=== PATIENT | female | born 1995 | race Two or more races ===

== ENCOUNTER 2024-09-18 02:58 | Emergency (ER) | payer MEDICAID, SELFPAY ==
--- NOTE | 2024-09-18 03:07 | EDNOTE_ITS ---
ED Syncope RME/HPI General Chief Complaint: Syncope / Near Syncope Stated Complaint: NEAR SYNCOPE Time Seen by Provider: 09/18/24 03:20 Arrival date/time: 09/18/24 02:58 RME / HPI RME / HPI narrative: This section includes all my notes and documentations, including HPI, PE, and ED course. Jonnie aLy MD HPI: 29yo female with no significant past medical history BIBA from home presents to the ED for a chief complaint of near syncope. Patient states she used 0.5 gram of cocaine tonight and drank alcohol tonight, reporting she felt dizzy. Patient endorses she's used cocaine in the past, but states this feels completely different . Per EMS, patient's blood pressure was 142/76 and was tachycardic en route. No syncope. She did not fall. Currently, she reports palpitations. No dizziness. Patient denies any vomiting, diarrhea or any other associated symptoms. No other complaints reported. ROS: All negative except as documented in HPI. Physical Exam: General: Alert and oriented. No acute distress when remaining still. Eyes: Conjunctivae and lids clear. PERRL. EOMI. ENT: No nasal congestion. Neck: Supple. Heart: RRR. Lungs: No respiratory distress. Good air movement. No rhonchi, wheezing, rales. Abdomen: Soft and nontender. Normal bowel sounds. No distension. No rebound or guarding. Back: No CVA tenderness. Skin: Warm and dry. Neuro: Alert and oriented X 3. Cranial nerves II to XII grossly normal. No peripheral motor deficits. I reviewed EMS notes. I reviewed all diagnostic test results. My interpretation of the EKG is sinus rhythm with nonspecific ST-T changes. Blood tests are unremarkable. UDS positive for cocaine and marijuana. At this point, diagnoses include cocaine intoxication. Treatment here included IV fluid. Significant improvement noted. Recommended more outpatient workup. Based on my best medical judgment, made decision no further evaluation or treatment indicated at this time. Patient understands and agrees to the discharge instructions customized and printed, see below. Discharge Instructions from Dr. Lay printed for you: 1. Fortunately, there is no life-threatening condition. Such as heart attack. 2. But cocaine can cause heart attacks. Avoid all drugs. 3. See a private doctor on 09/19/2024 for recheck. Ask to review all test results and official radiology reports, to make sure you receive all necessary follow-ups and monitoring. To make sure there is no serious underlying heart condition, ask to help you get more tests for your heart that cannot be done here in the ER. Such as Holter Monitor (cardiac monitoring at home from a day to even a month), heart stress test (on treadmill or with medication), echocardiogram (imaging of your heart structures), heart catherization (checking for blockages in your heart arteries), and a referral to see a Plate And Frame Filter Operator. 4. Seek immediate medical care with worsening or with any concerns. Jonnie Lay MD Related Data Allergies Allergy/AdvReac Type Severity Reaction Status Date / Time No Known Allergies Allergy Verified 09/18/24 04:15 Review of Systems Review of Systems Systems Reviewed: All systems reviewed, normal except as documented ED Exam Narrative Physical exam: As noted in HPI. Course Quality Measures none Orders Category Date Time Status EKG (ED ONLY) *Do not use* NOW Care 09/18/24 03:24 Completed Saline [Insert IV] NOW Care 09/18/24 03:21 Active Straight [In and Out Catheter] X1 Care 09/18/24 03:21 Active EKG (ED Only) Stat Exams 09/18/24 03:24 Draft Alcohol, Blood Medical Stat Lab 09/18/24 03:45 Completed Bilirubin,Direct Stat Lab 09/18/24 03:45 Completed CBC Stat Lab 09/18/24 03:45 Completed CMP [Comprehensive Metabolic Panel] Stat Lab 09/18/24 03:45 Completed Drug Screen,Urine Stat Lab 09/18/24 04:34 Completed Magnesium Stat Lab 09/18/24 03:45 Completed Troponin I Stat Lab 09/18/24 03:45 Completed Ondansetron Inj [Zofran Inj] Med 09/18/24 03:24 Discontinued 4 mg IVP X1 ONE Sodium Chloride 0.9% 1000 ml [Ns] 1,000 ml Med 09/18/24 03:24 Discontinued IV 999 mls/hr Vital Signs Vital signs: Vital Signs Temperature 98.4 F 09/18/24 03:43 Pulse Rate 98 09/18/24 03:43 Respiratory Rate 18 09/18/24 03:43 Blood Pressure 121/85 H 09/18/24 03:43 Pulse Oximetry (%) 100 09/18/24 03:43 Oxygen Delivery Method Room Air 09/18/24 03:43 Syncope MDM Narrative MDM Narrative:: Scribe Attestation: 09/18/24 - I, Neelima Wing am scribing for and in the presence of Dr. Lay. 29yo female with no significant past medical history BIBA from home presents to the ED for a chief complaint of near syncope. Patient states she used 0.5g of cocaine tonight and drank alcohol tonight, reporting she's felt dizzy. Patient endorses she's used cocaine in the past, but states this feels completely different . Per EMS, patient's blood pressure was 142/76 and was tachycardic en route. Patient denies any vomiting, diarrhea or any other associated symptoms. No other complaints reported. Patient data External records reviewed:: [facility] previous records (Per chart review, patient has no previous ED visits or admissions to this facility.) Clinical information provided by:: patient and EMS Social determinants that could affect healthcare access:: substance use (cocaine and alcohol use) Patient has the following chronic illnesses:: none How is presenting disease/condition affected by chronic disease/condition?: no chronic disease Evaluation data The following diagnostics were reviewed and interpreted by me:: lab results and EKG tracing(s) (My interpretation of the EKG is: Sinus rhythm (96 bpm) with nonspecific ST-T changes. Jonnie Lay MD) Lab and/or radiology exams considered but not ordered:: none Interpretation Summary: I reviewed all diagnostic test results. My interpretation of the EKG is sinus rhythm with nonspecific ST-T changes. Blood tests are unremarkable. UDS positive for cocaine and marijuana. Medications / Prescriptions Medications or Prescriptions considered but not ordered:: None Medication administrations:: Medication Administration History Discontinued Medications Sodium Chloride (Ns) 1,000 mls @ 999 mls/hr IV .Q1H1M ONE Stop: 09/18/24 04:24 Last Admin: 09/18/24 04:19 Dose: 999 mls/hr Documented By: RENAE Ondansetron HCl (Ondansetron Inj 2 Mg/Ml Inj 2 Ml) 4 mg IVP X1 ONE; Protocol Stop: 09/18/24 03:25 IV fluid and Zofran Consultations Consultation(s) initiated? (list below): No Diagnosis Syncope Differential Diagnosis: syncope due to orthostatic hypotension, vasovagal syncope, complete atrioventricular block, subarachnoid hemorrhage, pulmonary embolism, dehydration and other (ALK intoxication, drug intoxication) Most likely diagnosis given after review of the tests above:: Cocaine intoxication Admission Indicated Admission indicated?: not indicated Explain why admission is indicated or not indicated:: With significant improvement, there was no indication for admission. Admission Request Was there a request for admission?: No Disposition Plan Disposition Plan: Discharge Discharge Attestation Discharge Attestation: The patient and all family members were given an opportunity to ask questions and understood the discharge instructions. Discharge instructions specifically effects, indications for sooner follow up or return to the emergency department, and the expected course of current diagnosis. Patient condition: Stable Discharge Plan Plan Patient Disposition: HOME (Self Care) Prescriptions/Referrals Referrals: No Primary/Family,Physician [Primary Care Provider] - In 1 week Problem List Clinical Impression: Cocaine intoxication Patient/Caregiver Discharge Instructions Discharge Activity: activity as tolerated Education Materials: ED Cocaine And Crack Abuse, ED Drug Abuse Additional Instructions: Discharge Instructions from Dr. Lay printed for you: 1. Fortunately, there is no life-threatening condition. Such as heart attack. 2. But cocaine can cause heart attacks. Avoid all drugs. 3. See a private doctor on 09/19/2024 for recheck. Ask to review all test results and official radiology reports, to make sure you receive all necessary follow-ups and monitoring. To make sure there is no serious underlying heart condition, ask to help you get more tests for your heart that cannot be done here in the ER. Such as Holter Monitor (cardiac monitoring at home from a day to even a month), heart stress test (on treadmill or with medication), echocardiogram (imaging of your heart structures), heart catherization (checking for blockages in your heart arteries), and a referral to see a Plate And Frame Filter Operator. 4. Seek immediate medical care with worsening or with any concerns. Print Language: Palestinian Stand Alone Forms: Samantha Award Info., Patient Portal Info Letter
--- NOTE | 2024-09-18 03:24 | EKG_ITS ---
[facility] Test Date: 2024-09-18 Pat Name: ANTOLIN PALACIOS Department: Room: - Gender: Female Business Mgr: : 1995 Requested By: Jonnie Rivero Order Number: [id number] Reading MD: Jonnie Rivero Measurements Intervals [place] Rate: 96 P: 48 [place]: 156 QRS: 29 QRSD: 89 T: 29 QT: 342 QTc: 434 Interpretive Statements SINUS RHYTHM POSSIBLE ANTERIOR MYOCARDIAL INFARCTION , PROBABLY OLD [30 ms Q WAVE IN V3/V4, OR R < 0.2 mV IN V4] No previous ECG available for comparison /store/S0/[id number].pdf
[2024-09-18 03:43] VITALS: BP 121/85; PULSE 98; RESP 18; TEMP 36.9; O2SAT 100
[2024-09-18 03:52] LABS: Basophils # (Auto) 0.1 Thou/mm3 (0.0-0.2); Basophils % (Auto) 0 % (0-2.5); Eosinophils # (Auto) 0.3 Thou/mm3 (0.0-0.5); Eosinophils % (Auto) 3 % (0-10); Hematocrit 37.4 % (36.0-46.0); Hemoglobin 12.6 g/dL (12.0-16.0); Immature Granulocytes % (Auto) 1 % (0-0); Immature Granulocytes Auto 0.07 Thou/mm3 (0.00-0.00); Lymphocytes # (Auto) 1.7 Thou/mm3 (1.0-4.8); Lymphocytes % (Auto) 15 % (10-50); Mean Corpuscular HGB Conc 33.7 g/dl (31.0-37.0); Mean Corpuscular Hemoglobin 29.6 pg (25.0-35.0); Mean Corpuscular Volume 88 fL (80-100); Monocytes # (Auto) 0.8 Thou/mm3 (0.0-0.8); Monocytes % (Auto) 7 % (0-12); Neutrophils # (Auto) 8.6 Thou/mm3 (1.8-7.7); Neutrophils % (Auto) 75 % (37-80); Nucleated Red Blood Cell % 0 /100 WBC (0); Platelet Count 325 Thou/mm3 (140-440); RDW Standard Deviation 42.1 fL (36.4-46.3); Red Blood Count 4.26 Miln/mm3 (4.00-5.20); White Blood Count 11.6 Thou/mm3 (3.6-11.0)
[2024-09-18 04:05] VITALS: PULSE 134; O2SAT 97; BMI 27.4
[2024-09-18] MEDS: SODIUM CHLORIDE 0.9% 1000 ML 1,000 ML 999 ML IV (04:19)
[2024-09-18 04:33] LABS: Alanine Aminotransferase 8 U/L (10-49); Albumin, Serum 4.3 gm/dL (3.5-5.0); Alcohol, Blood Medical < 3.0 mg/dL (0-10.0); Alkaline Phosphatase 72 U/L (46-116); Anion Gap 8 (7-16); Aspartate Amino Transferase 13 U/L (0-34); BUN/Creatinine Ratio 18 Ratio (12-20); Bilirubin,Direct < 0.1 mg/dL (0.0-0.3); Bilirubin,Total 0.2 mg/dL (0.3-1.2); Blood Urea Nitrogen 14 mg/dL (9-23); Calcium 8.9 mg/dL (8.3-10.6); Calcium (Corrected) 8.9 mg/dL (8.5-10.1); Carbon Dioxide 24.7 mMol/L (20.0-31.0); Chloride 106 mMol/L (98-107); Creatinine (Component) 0.8 mg/dL (0.6-1.3); Estimated Creatinine Clearance 101.3 mL/min (>60); Globulin 2.2 gm/dL (2.3-3.5); Glucose 120 mg/dL (74-106); Magnesium 1.6 mg/dL (1.6-2.6); Osmolality,Calculated 279 (275-295); Potassium 3.4 mMol/L (3.4-5.1); Sodium 139 mMol/L (136-145); Total Protein 6.5 gm/dL (5.7-8.2); Troponin I < 0.002 ng/mL (0.0-0.045); eGFR > 60 See Note
[2024-09-18 04:55] LABS: Amphetamine/Methamp Scrn,U Negative (Negative); Barbiturate Screen,Urine Negative (Negative); Benzodiazepines Screen,Urine Negative (Negative); Benzoylecgonine Screen, Ur Positive (Negative); Fentanyl Screen,Urine Negative (Negative); Opiate Screen,Urine Negative (Negative); THC Screen,Urine Positive (Negative)
--- NOTE | 2024-09-18 05:30 | PC.NURSE ---
PT SEEN LEAVING ER BEFORE RECEIVING DC PAPERWORK. IV NOT TAKEN OUT BY STAFF, CHECKED ROOM FOR IV IN CASE PT TOOK OUT IV HERSELF. NO IV FOUND IN ROOM. CONTACTED [facility] SPOKE WITH KARLI. INFORMED PT POSSIBLY LEFT WITH IV STILL IN PLACE. PER [facility] WILL SEND SOMEONE TO LOCATE PT.
--- NOTE | 2024-09-18 05:57 | PC.NURSE ---
PT CALLED ER, INFORMED PT [facility] WAS CALLED BECAUSE PT LEFT WITH IV IN PLACE. PT INSISTS SHE TOOK HER IV OUT AND THREW IT IN THE TRASH OUTSIDE. INFORMED PT SHE NEEDS TO COME BACK SO WE CAN CHECK IF IV WAS REMOVED. PT STATES SHE WILL NOT COME BACK.
== END 2024-09-18 06:02 | disposition home or self-care (01) ==
PROVIDERS: Emergency Provider Emergency Medicine
DX: F14.129 Cocaine abuse with intoxication, unspecified (principal)
CPT/HCPCS: 36415; 80053; 80307; 80320; 82248; 83735; 84484; 85025; 93005; 96360; 99284; J7030; G0480